=== PATIENT | female | born 1985 | race Caucasian/White ===

== ENCOUNTER 2020-04-20 12:51 | Emergency (ER) | payer MEDICAID ==
[~2020-04-20] VITALS: Ht 157.5 cm; Wt 61.2 kg
[2020-04-20 13:09] LABS: *BILIRUBIN,URIN NEGATIVE (NEGATIVE); *BLOOD, URINE 3+ (NEGATIVE); *CLARITY,URINE CLOUDY (CLEAR); *COLOR,URINE YELLOW (YELLOW); *KETONES,URINE NEGATIVE (NEGATIVE); *UROBILINOGEN,URINE 0.2 E.U./dl (NORMAL); LEUKOCYTE ESTERASE ,URINE TRACE (NEGATIVE); NITRITE, URINE POSITIVE (NEGATIVE); UGLUCOSE NEGATIVE (NEGATIVE)
[2020-04-20 13:10] LABS: *URINE HCG, QUAL NEGATIVE (NEGATIVE)
[2020-04-20] MEDS ORDERED: IBUPROFEN 600 MG TABLET ONE (13:13)
[2020-04-20] MEDS ORDERED: IBUPROFEN 600 MG TABLET PO ONE (13:15)
[2020-04-20 13:34] LABS: BACTERIA,URINE MANY /HPF (NONE SEEN); SQUAMOUS EPITHELIAL CELL,UR MODERATE /HPF (NONE SEEN); WBC,URINE 80-100 /HPF (0-3)
--- NOTE | 2020-04-20 13:37 | NUR ---
Patient discharged to home in stable condition. Written and verbal after care instructions given. Patient verbalizes understanding of instructions. Stressed follow up or return to ER for worsening s/s.
== END 2020-04-20 13:39 | disposition home or self-care (01) ==
LOC: ER 12:51
DX: N39.0 Urinary tract infection, site not specified (principal); Z87.440 Personal history of urinary (tract) infections
CPT/HCPCS: 84703; 87077; 87086; A4663

== ENCOUNTER 2022-04-04 11:26 | Emergency (ER) | payer MEDICAID ==
[~2022-04-04] VITALS: Ht 157.5 cm; Wt 51.7 kg
[2022-04-04] MEDS ORDERED: IV NORMAL SALINE 100 ML BAG IV ONE ×2 (11:45→17:00)
[2022-04-04] MEDS ORDERED: CEFTRIAXONE 1 G in IV DEXTROSE 5% 50 ML IV ONE (11:45)
[2022-04-04] MEDS ORDERED: diphenhydrAMINE 50 MG/1 ML VIAL IV ONE (11:45)
[2022-04-04 11:50] LABS: *BILIRUBIN,URIN NEGATIVE (NEGATIVE); *BLOOD, URINE 2+ (NEGATIVE); *CLARITY,URINE CLOUDY (CLEAR); *COLOR,URINE YELLOW (YELLOW); *KETONES,URINE NEGATIVE (NEGATIVE); *UROBILINOGEN,URINE 0.2 E.U./dl (NORMAL); LEUKOCYTE ESTERASE ,URINE 3+ (NEGATIVE); NITRITE, URINE POSITIVE (NEGATIVE); PH,URINE 5.5 (5.0-8.0); UGLUCOSE NEGATIVE (NEGATIVE)
[2022-04-04] MEDS ORDERED: CEFTRIAXONE /D5W 50ML IVPB **ER PYXIS IV ONE (11:51)
[2022-04-04] MEDS ORDERED: diphenhydrAMINE 50 MG/1 ML VIAL ONE (11:51)
[2022-04-04 11:52] LABS: HEMATOCRIT 35.5 % (31.2-41.9); MEAN CORPUSCULAR HEMOGLOBIN 27.5 uug (24.7-32.8); MEAN CORPUSCULAR VOLUME 80.3 fL (75.5-95.3); PLATELET COUNT (AUTO) 291 K/uL (179-408)
[2022-04-04] MEDS ORDERED: MORPHINE SULFATE 2 MG/1 ML DISP.SYRIN IV ONE ×2 (12:00→15:15)
[2022-04-04 12:06] LABS: BILIRUBIN,TOTAL 0.7 mg/dL (0.2-1.0); CREATININE 1.1 mg/dL (0.6-1.3); POTASSIUM 3.5 mmol/L (3.5-5.1); TOTAL PROTEIN, SERUM 7.4 g/dL (6.4-8.2)
[2022-04-04] MEDS ORDERED: MORPHINE SULFATE 2 MG/1 ML DISP.SYRIN ONE (12:08)
[2022-04-04] MEDS ORDERED: IOHEXOL 300MG/ML 100 ML INFUS..BTL ONE (12:14)
[2022-04-04] MEDS ORDERED: SWABABLE VALVE TRANSFER SET EA MC ONE (12:14)
[2022-04-04] MEDS ORDERED: IV NORMAL SALINE 250 ML IV ONE (12:15)
[2022-04-04 13:34] LABS: BACTERIA,URINE MANY /HPF (NONE SEEN); RBC,URINE 20-50 /HPF (0-3); SQUAMOUS EPITHELIAL CELL,UR MODERATE /HPF (NONE SEEN); WBC,URINE 50-80 /HPF (0-3)
[2022-04-04] MEDS ORDERED: MORPHINE SULFATE 4 MG/1 ML DISP.SYRIN ONE ×2 (14:40→21:24)
[2022-04-04] MEDS ORDERED: SERT100T PO (16:10)
--- NOTE | 2022-04-04 16:11 | NUR ---
Pt states she takes 2 other medications that she can't remember right now. Needs further follow up.
[2022-04-04] MEDS ORDERED: HYDROMORPHONE 1 MG/1 ML DISP.SYRIN ONE (16:53)
[2022-04-04] MEDS ORDERED: HYDROMORPHONE 1 MG/1 ML DISP.SYRIN IV ONE (17:00)
[2022-04-04] MEDS ORDERED: DOXYCYCLINE HYCLATE IV 100 MG in IV DEXTROSE 5% 100 ML IV ONE (17:00)
[2022-04-04] MEDS ORDERED: DOXYCYCLINE HYCLATE 100 MG INJ IV ONE (17:16)
--- NOTE | 2022-04-04 18:00 | NUR ---
Dr. Stout speaking with Dr. Gonzalez of [facility].
[2022-04-04] MEDS ORDERED: MORPHINE SULFATE 2 MG/1 ML DISP.SYRIN IV PRN (21:00)
[2022-04-04] MEDS ORDERED: IV LACTATED RINGERS SOLUTION 1,000 ML IV PRN (21:00)
[2022-04-04] MEDS ORDERED: LORAZEPAM 0.5 MG TABLET PO PRN (21:00)
[2022-04-04] MEDS ORDERED: ONDANSETRON 4 MG/2 ML VIAL IV PRN (21:00)
[2022-04-04] MEDS ORDERED: levoFLOXacin 750MG/D5W 750 MG in PREMIXED 1 EACH IV SCH (21:00)
[2022-04-04] MEDS ORDERED: MAGNESIUM HYDROXIDE 30 ML LIQUID UDC PO PRN (21:00)
[2022-04-04] MEDS ORDERED: ACETAMINOPHEN 325 MG TABLET PO PRN (21:00)
[2022-04-04] MEDS ORDERED: MORPHINE SULFATE 4 MG/1 ML DISP.SYRIN IV ONE (21:30)
--- NOTE | 2022-04-04 21:59 | NUR ---
Patient does not wish to proceed with medical care recommended by Jessee Brody NP. Patient given information related to possible complications, up to and including , which could occur as a result of leaving the hospital at this time. Patient verbalizes understanding of risks involved due to leaving against medical advice. Patient has signed AMA form.
[2022-04-04 23:11] VITALS: BP 112/69
[2022-04-05] MEDS ORDERED: PANTOPRAZOLE SODIUM 40 MG TABLET.DR PO SCH (07:00)
[2022-04-05] MEDS ORDERED: SERTRALINE HCL 100 MG TABLET PO SCH (09:00)
== END 2022-04-04 22:02 | disposition left against medical advice (07) ==
LOC: ER 11:26
DX: N10 Acute pyelonephritis (principal); F32.A Depression, unspecified; F41.9 Anxiety disorder, unspecified; Z20.822 Contact with and (suspected) exposure to COVID-19; Z53.29 Procedure and treatment not carried out because of patient's decision for other reasons; Z87.440 Personal history of urinary (tract) infections; R19.04 Left lower quadrant abdominal swelling, mass and lump; Z88.1 Allergy status to other antibiotic agents; Z20.2 Contact with and (suspected) exposure to infections with a predominantly sexual mode of transmission
CPT/HCPCS: 36415; 74177; 76856; 80053; 81001; 83690; 84702; 85025; 87077; 87086; 87186; 87426; 96365; 96375; 96376; 99291; J0696; J1170; J1200; J2270 ×3; J3490; J7040 ×2; Q9967; A4663